=== PATIENT | female | born 1930 | race Caucasian/White ===

== ENCOUNTER 2017-05-04 16:37 | Emergency (ER) | payer OTHER ==
[2017-05-04 16:42] VITALS: BP 138/81; PULSE 108; RESP 16; TEMP 98.6; O2SAT 97
[2017-05-04 16:56] LABS: COLOR AMBER; LEUKOCYTE ESTERASE,URINE 2+ (NEGATIVE); NITRITE,URINE POSITIVE (NEGATIVE)
[2017-05-04 16:57] LABS: BACTERIA 3+ /hpf (NONE SEEN); RBC,URINE 15-25 /hpf (0-3); WBC,URINE 50-182 /hpf (0-3)
--- NOTE | 2017-05-04 17:10 | EDPHY ---
H & P Stated Complaint: ?UTI Time Seen by Provider: 05/04/17 17:09 - Personal History Current Tetanus/Diphtheria Vaccine: Yes Current Tetanus Diphtheria and Acellular Pertussis (TDAP): Yes - Medical/Surgical History Hx Asthma: No Hx Chronic Respiratory Disease: No Hx Diabetes: No Hx Cardiac Disease: No Hx Renal Disease: No Hx Cirrhosis: No Hx Alcoholism: No Hx HIV/AIDS: No Hx Splenectomy or Spleen Trauma: No - Social History Smoking Status: Never smoked Constitutional: Initial Vital Signs Temperature (C) 37 C 05/04/17 16:40 Heart Rate 108 H 05/04/17 16:40 Respiratory Rate 16 05/04/17 16:40 Blood Pressure 138/81 H 05/04/17 16:40 O2 Sat (%) 97 05/04/17 16:40 O2 Delivery Mode Room Air Allergies/Adverse Reactions: No Known Allergies Allergy (Unverified 05/04/17 17:24) Home Medications: Medication Instructions Recorded Cephalexin [Keflex (RX)] 500 mg PO TID #30 cap 05/04/17 Phenazopyridine HCl [Pyridium] 200 mg PO TID #6 tab 05/04/17 Medical Decision Making ED Course/Re-evaluation: CHIEF COMPLAINT: Patient has urinary tract infection HISTORY OF PRESENT ILLNESS: Patient has had many urinary tract infections. She has had symptoms over 2 days. She has burning frequency and urgency. She denies flank pain fevers chills or any systemic illness. REVIEW OF SYSTEMS: A 10 point review of systems was performed and is negative with the exception of the elements mentioned in the history of present illness. PHYSICAL EXAM: HR, BP, O2 Sat, RR. Temp noted General Appearance: Alert, well hydrated, appropriate, and non-toxic appearing. Head: Atraumatic without scalp tenderness or obvious injury Eyes: Pupils equal, round, reactive to light and accommodation, EOMI, no trauma , no injection. Ears: Clear bilaterally, no perforation, normal landmarks Nose: Atraumatic, no rhinorrhea, clear. Throat: There is no erythema or exudates, no lesions, normal tonsils, mucus membranes moist. Neck: Supple, 2+ carotid upstroke, nontender, no lymphadenopathy. Respiratory: No retractions, no distress, no wheezes, and no accessory muscle use. Lungs are clear to auscultation bilaterally. Cardiovascular: Regular rate and rhythm, no murmurs, rubs, or gallops. Bilateral carotid, radial, dorsalis pedis, and posterior tibial pulses intact. Good capillary refill all extremities. Gastrointestinal: Abdomen is soft, nontender, non-distended, no masses, no rebound, no guarding, no peritoneal signs. Musculoskeletal: Normal active ROM of all extremities, atraumatic. Neurological: Alert, appropriate, and interactive. The patient has normal DTRs and non-focal cranial nerves, motor, sensory, and cerebellar exam. Skin: No rashes, good turgor, no nodules on palpation. Past medical history: Prior urinary tract infections Past surgical history: Noncontributory Family history: Noncontributory Social history: , works as a volunteer teacher, lives at an assisted living center, does not abuse tobacco drugs or alcohol DIFFERENTIAL DIAGNOSIS: Includes but is not limited to: Urinary tract infection, cystitis, pyelonephritis, atrophic vaginitis MEDICAL DECISION MAKING: This patient is not systemically ill. I have started her on Keflex 500 mg three times daily for 10 days. I have also give her Pyridium 200 mg three times daily for 6 days. She will return if she develops any systemic symptoms. She will also return if she gets any worse. - Data Points Laboratory Results: 05/04/17 16:45 Urine Color DOUG Urine Appearance MODERATELY TURBID Urine pH 6.0 (5.0-7.5) Ur Specific [place] 1.003 (1.002-1.030) Urine Protein NEGATIVE (NEGATIVE) Urine Ketones NEGATIVE (NEGATIVE) Urine Blood NEGATIVE (NEGATIVE) Urine Nitrate POSITIVE H (NEGATIVE) Urine Bilirubin NEGATIVE (NEGATIVE) Urine Urobilinogen 4.0 EU H EU (0.2-1.0) Ur Leukocyte Esterase 2+ H (NEGATIVE) Urine RBC 15-25 /hpf H /hpf (0-3) Urine WBC 50-182 /hpf H /hpf (0-3) Ur Epithelial Cells TRACE /lpf /lpf (NONE-1+) Urine Bacteria 3+ /hpf H /hpf (NONE SEEN) Urine Glucose NEGATIVE (NEGATIVE) Medications Given: Discontinued Medications Cephalexin HCl (Keflex) 500 mg PO EDNOW ONE PRN Reason: Protocol Stop: 05/04/17 17:24 Last Admin: 05/04/17 17:25 Dose: 500 mg Departure - Departure Disposition: Home, Routine, Self-Care Clinical Impression: Urinary tract infection Qualifiers: Urinary tract infection type: acute cystitis Hematuria presence: with hematuria Qualified Code(s): N30.01 - Acute cystitis with hematuria Condition: Good Instructions: Urinary Tract Infection in Women (ED) Additional Instructions: Return if worse Referrals: Rosanna North MD [Primary Care Provider] - As per Instructions Prescriptions: Cephalexin [Keflex (RX)] 500 mg PO TID #30 cap Phenazopyridine HCl [Pyridium] 200 mg PO TID #6 tab
[2017-05-04] MEDS ORDERED: CEPHALEXIN 500 MG CAP PO ONE (17:23)
== END 2017-05-04 17:31 | disposition home or self-care (01) ==
DX: N30.01 Acute cystitis with hematuria (principal); B96.89 Other specified bacterial agents as the cause of diseases classified elsewhere

== ENCOUNTER 2018-08-15 04:40 | Emergency (ER) | payer OTHER ==
--- NOTE | 2018-08-15 04:51 | EDPHY ---
H & P Stated Complaint: POSS UTI, BURNING W/ URINATION, CLOUDY URINE Time Seen by Provider: 08/15/18 04:50 HPI/ROS: HPI CHIEF COMPLAINT: Possible urinary tract infection. HISTORY OF PRESENT ILLNESS: Very pleasant 88-year-old female presents emergency room for urinary tract infection type symptoms. Patient complains of dysuria, urinary frequency and cloudy urine. Patient denies fever, abdominal pain, back pain, chest pain or shortness of breath. Past Medical History: Previous history of UTIs. Past Surgical History: Denies recent surgical history Social History: Denies drugs alcohol tobacco. Family History: Noncontributory ROS REVIEW OF SYSTEMS: 10 Systems were reviewed and negative with the exception of the elements mentioned in the history of present illness. Exam Constitutional elderly, nontoxic, triage nursing summary reviewed, vital signs reviewed, awake/alert. Vital signs stable and afebrile. Eyes normal conjunctivae and sclera, EOMI, PERRLA. HENT normal inspection, atraumatic, moist mucus membranes, no epistaxis, neck supple/ no meningismus, no raccoon eyes. Respiratory clear to auscultation bilaterally, normal breath sounds, no respiratory distress, no wheezing. Cardiovascular rate normal, regular rhythm, no murmur, no edema, distal pulses normal. Gastrointestinal soft, non-tender, no rebound, no guarding, normal bowel sounds, no distension, no pulsatile mass. Genitourinary no CVA tenderness. Musculoskeletal no midline vertebral tenderness, full range of motion, no calf swelling, no tenderness of extremities, no meningismus, good pulses, neurovascularly intact. Skin pink, warm, & dry, no rash, skin atraumatic. Neurologic awake, alert and oriented x 3, AAOx3, moves all 4 extremities equally, motor intact, sensory intact, CN II-XII intact, normal cerebellar, normal vision, normal speech. Psychiatric normal mood/affect. Heme/Lymph/Immune no lymphadenopathy. Differential Diagnosis: Includes but is not limited to in a particular order UTI, cystitis, pyelonephritis. Medical Decision Making: Plan for this patient check UA. Re-evaluation: Urinalysis reviewed Shows UTI cystitis red and white. Urine culture will be sent. Keflex and pyridium given in the emergency room. Keflex prescription, Keflex and pyridium for home. Return precautions discussed. Return emergency room if there is worsening abdominal pain, fever, vomiting. Source: Patient, Family - Personal History Current Tetanus Diphtheria and Acellular Pertussis (TDAP): Yes - Medical/Surgical History Hx Asthma: No Hx Chronic Respiratory Disease: No Hx Diabetes: No Hx Cardiac Disease: No Hx Renal Disease: No Hx Cirrhosis: No Hx Alcoholism: No Hx HIV/AIDS: No Hx Splenectomy or Spleen Trauma: No Other PMH: DENIES - Social History Smoking Status: Never smoked Constitutional: Initial Vital Signs Temperature (C) 36.2 C 08/15/18 04:46 Heart Rate 89 08/15/18 04:46 Respiratory Rate 16 08/15/18 04:46 Blood Pressure 149/94 H 08/15/18 04:46 O2 Sat (%) 97 08/15/18 04:46 O2 Delivery Mode Room Air Allergies/Adverse Reactions: Sulfa (Sulfonamide Antibiotics) Allergy (Verified 08/15/18 04:45) Home Medications: Medication Instructions Recorded Cephalexin [Keflex] 500 mg PO Q6H #28 cap 08/15/18 Phenazopyridine HCl [Pyridium] 200 mg PO TID #15 tab 08/15/18 Medical Decision Making - Data Points Laboratory Results: 08/15/18 05:00 Urine Color RED Urine Appearance TURBID Urine pH 6.0 (5.0-7.5) Ur Specific [place] 1.012 (1.002-1.030) Urine Protein 2+ H (NEGATIVE) Urine Ketones NEGATIVE (NEGATIVE) Urine Blood 3+ H (NEGATIVE) Urine Nitrate NEGATIVE (NEGATIVE) Urine Bilirubin NEGATIVE (NEGATIVE) Urine Urobilinogen NEGATIVE EU EU (0.2-1.0) Ur Leukocyte Esterase 3+ H (NEGATIVE) Urine RBC 50-182 /hpf H /hpf (0-3) Urine WBC 50-182 /hpf H /hpf (0-3) Ur Epithelial Cells NONE SEEN /lpf /lpf (NONE-1+) Urine Glucose NEGATIVE (NEGATIVE) Medications Given: Discontinued Medications Cephalexin HCl (Keflex) 500 mg PO EDNOW ONE PRN Reason: Protocol Stop: 08/15/18 05:16 Last Admin: 08/15/18 05:31 Dose: 500 mg Phenazopyridine HCl (Pyridium) 200 mg PO EDNOW ONE Stop: 08/15/18 05:16 Last Admin: 08/15/18 05:30 Dose: 200 mg Departure - Departure Disposition: Home, Routine, Self-Care Clinical Impression: Urinary tract infection Qualifiers: Urinary tract infection type: acute cystitis Hematuria presence: with hematuria Qualified Code(s): N30.01 - Acute cystitis with hematuria Condition: Good Instructions: Urinary Tract Infection in Women (ED) Additional Instructions: 1. Make sure to drink lots of fluids. 2. Return emergency room if you have worsening symptoms. 3. Antibiotics as prescribed. 4. Please return emergency room if develops worsening symptoms includes back pain, fever, vomiting or not doing well. Referrals: Rosanna North MD [Primary Care Provider] - As per Instructions Prescriptions: Cephalexin [Keflex] 500 mg PO Q6H #28 cap Phenazopyridine HCl [Pyridium] 200 mg PO TID #15 tab
[2018-08-15] MEDS ORDERED: PHENAZOPYRIDINE HCL 200 MG TAB PO ONE (05:15)
[2018-08-15] MEDS ORDERED: CEPHALEXIN 500 MG CAP PO ONE (05:15)
[2018-08-15 05:47] VITALS: BP 116/78
== END 2018-08-15 05:47 | disposition home or self-care (01) ==
DX: N30.01 Acute cystitis with hematuria (principal); Z88.2 Allergy status to sulfonamides

== ENCOUNTER 2018-08-27 04:56 | Emergency (ER) | payer OTHER ==
--- NOTE | 2018-08-27 05:02 | EDPHY ---
H & P Time Seen by Provider: 08/27/18 05:02 HPI/ROS: HPI CHIEF COMPLAINT: UTI HISTORY OF PRESENT ILLNESS: 88-year-old female I recently saw all mid August for urinary tract infection placed on Keflex and pyridium, presents to the emergency room dysuria, urinary frequency and some bladder pressure. No fever no back pain or vomiting. She otherwise feels well. She is concerned she may have another urinary tract infection. She did complete the previous course of Keflex. Review for urine culture shows last culture in our system showed Enterobacter. This was resistant to some cephalosporins. Susceptible to Macrobid. Previous culture that was E coli susceptible to cephalosporins. Past Medical History: Significant medical history for UTI. Past Surgical History: Denies Recent surgery Social History: Drugs alcohol tobacco. Family History: Noncontributory ROS REVIEW OF SYSTEMS: 10 Systems were reviewed and negative with the exception of the elements mentioned in the history of present illness. Exam Constitutional triage nursing summary reviewed, vital signs reviewed, awake/ alert. Eyes normal conjunctivae and sclera, EOMI, PERRLA. HENT normal inspection, atraumatic, moist mucus membranes, no epistaxis, neck supple/ no meningismus, no raccoon eyes. Respiratory clear to auscultation bilaterally, normal breath sounds, no respiratory distress, no wheezing. Cardiovascular rate normal, regular rhythm, no murmur, no edema, distal pulses normal. Gastrointestinal soft, non-tender, no rebound, no guarding, normal bowel sounds, no distension, no pulsatile mass. Genitourinary no CVA tenderness. Musculoskeletal no midline vertebral tenderness, full range of motion, no calf swelling, no tenderness of extremities, no meningismus, good pulses, neurovascularly intact. Skin pink, warm, & dry, no rash, skin atraumatic. Neurologic awake, alert and oriented x 3, AAOx3, moves all 4 extremities equally, motor intact, sensory intact, CN II-XII intact, normal cerebellar, normal vision, normal speech. Psychiatric normal mood/affect. Heme/Lymph/Immune no lymphadenopathy. Differential Diagnosis: Includes but is not limited to in a particular order UTI, cystitis, pyelonephritis Medical Decision Making: Plan for this patient check UA. Review urine cultures. Re-evaluation: Plan for this patient I did review her urine culture and UA her urinalysis here shows nitrite positive UTI. Urine cultures reviewed it has grown out E coli in the past as well as Enterobacter. Will placed on Macrobid as she has had resistance to cephalosporins in the past. New urine culture sent today. Patient is to follow up with her primary care doctor additionally called out her urine culture results. Take Macrobid as prescribed Drink lots of fluids. Return emergency room if worsening symptoms including abdominal pain, fever, vomiting. She is comfortable this plan. Here in emergency room she appears well nontoxic afebrile no back pain no vomiting no fever. Source: Patient - Medical/Surgical History Hx Asthma: No Hx Chronic Respiratory Disease: No Hx Diabetes: No Hx Cardiac Disease: No Hx Renal Disease: No Hx Cirrhosis: No Hx Alcoholism: No Hx HIV/AIDS: No Hx Splenectomy or Spleen Trauma: No Other PMH: DENIES - Social History Smoking Status: Never smoked Constitutional: Initial Vital Signs Temperature (C) 36.7 C 08/27/18 05:02 Heart Rate 99 08/27/18 05:02 Respiratory Rate 16 08/27/18 05:02 Blood Pressure 119/78 08/27/18 05:02 O2 Sat (%) 94 08/27/18 05:02 O2 Delivery Mode Room Air Allergies/Adverse Reactions: Sulfa (Sulfonamide Antibiotics) Allergy (Verified 08/27/18 05:05) Home Medications: Medication Instructions Recorded Nitrofurantoin Monohyd/M-Cryst 100 mg PO BID #20 capsule 08/27/18 [Macrobid 100 mg Capsule] Phenazopyridine HCl [Pyridium] 200 mg PO TID #15 tab 08/27/18 Medical Decision Making - Data Points Laboratory Results: 08/27/18 05:06 Urine Color YELLOW Urine Appearance TURBID Urine pH 7.0 (5.0-7.5) Ur Specific [place] 1.008 (1.002-1.030) Urine Protein 2+ H (NEGATIVE) Urine Ketones NEGATIVE (NEGATIVE) Urine Blood 2+ H (NEGATIVE) Urine Nitrate POSITIVE H (NEGATIVE) Urine Bilirubin NEGATIVE (NEGATIVE) Urine Urobilinogen NEGATIVE EU EU (0.2-1.0) Ur Leukocyte Esterase 3+ H (NEGATIVE) Urine RBC 50-182 /hpf H /hpf (0-3) Urine WBC 50-182 /hpf H /hpf (0-3) Ur Epithelial Cells NONE SEEN /lpf /lpf (NONE-1+) Urine Bacteria 2+ /hpf H /hpf (NONE SEEN) Urine Mucus TRACE /lpf /lpf (NONE-1+) Urine Yeast NONE SEEN /hpf /hpf (NONE SEEN) Urine Glucose NEGATIVE (NEGATIVE) Departure - Departure Disposition: Home, Routine, Self-Care Clinical Impression: Urinary tract infection Condition: Good Instructions: Urinary Tract Infection in Women (ED) Additional Instructions: 1. Make sure to drink lots of fluids stay well-hydrated 2. Antibiotics as prescribed. 3. Follow up with your primary care doctor 4. Call in 48-72 hours about you're urine culture to make sure you're on the correct antibiotic. Referrals: Unknown,Unknown [Primary Care Provider] - As per Instructions Rosanna North MD [Doctor of Osteopathy] - As per Instructions Prescriptions: Nitrofurantoin Monohyd/M-Cryst [Macrobid 100 mg Capsule] 100 mg PO BID #20 capsule Phenazopyridine HCl [Pyridium] 200 mg PO TID #15 tab
[2018-08-27 05:04] VITALS: BP 119/78
[2018-08-27] MEDS ORDERED: NITROFURANTOIN 100MG PREPACK#2 BTL TAKEHOME ONE (05:27)
[2018-08-27] MEDS ORDERED: NITROFURANTOIN MACROBID 100 MG CAP PO ONE (05:27)
[2018-08-27] MEDS ORDERED: PHENAZOPYRIDINE HCL 200 MG TAB PO ONE (05:27)
== END 2018-08-27 05:57 | disposition home or self-care (01) ==
DX: N39.0 Urinary tract infection, site not specified (principal)